=== PATIENT | male | born 1945 | race Caucasian/White ===

== ENCOUNTER → 2016-09-13 | Outpatient (CLI) | payer MEDICARE, OTHER ==
[~2016-09-13] MED LIST: KLOR-CON M1010 MEQ PO; LEADER OMEPRAZO20 MG PO; LIDOCAINE HC20 MG/M1 MM; NICOTINE21 MG/24 H TD; NO HOME MEDICATIONS; NORCO 325 MG-7.1 TA1 PO; PROAIR RESPICL90 MCG IH; SERTRALINE50 MG PO
== END ==
LOC: LAB 08:33
DX: C01 Malignant neoplasm of base of tongue (principal); F17.210 Nicotine dependence, cigarettes, uncomplicated; R68.89 Other general symptoms and signs

== ENCOUNTER 2017-03-07 11:26 | Emergency (ER) | payer MEDICARE, OTHER ==
[~2017-03-07] VITALS: Ht 188 cm; Wt 50.9 kg
[~2017-03-07 11:26] MED LIST changes: -KLOR-CON M1010 MEQ PO; -LEADER OMEPRAZO20 MG PO; -LIDOCAINE HC20 MG/M1 MM; -NICOTINE21 MG/24 H TD; -NORCO 325 MG-7.1 TA1 PO; -PROAIR RESPICL90 MCG IH; -SERTRALINE50 MG PO
[2017-03-07] MEDS ORDERED: SERTRALINE50 MG PO (11:54)
[2017-03-07] MEDS ORDERED: NORCO 325 MG-7.1 TA1 PO (11:55)
[2017-03-07] MEDS ORDERED: LIDOCAINE HC20 MG/M1 MM (12:00)
[2017-03-07] MEDS ORDERED: KLOR-CON M1010 MEQ PO (12:09)
[2017-03-07] MEDS ORDERED: NICOTINE21 MG/24 H TD (14:55)
[2017-03-07 16:39] VITALS: BP 122/87
== END 2017-03-07 16:39 | disposition left against medical advice (07) ==
LOC: ED 11:26
DX: E87.1 Hypo-osmolality and hyponatremia (principal); F10.10 Alcohol abuse, uncomplicated; R74.8 Abnormal levels of other serum enzymes; J44.9 Chronic obstructive pulmonary disease, unspecified; Z85.810 Personal history of malignant neoplasm of tongue; K21.9 Gastro-esophageal reflux disease without esophagitis; K29.70 Gastritis, unspecified, without bleeding; F17.210 Nicotine dependence, cigarettes, uncomplicated; R07.0 Pain in throat; R13.10 Dysphagia, unspecified; Z91.81 History of falling
CPT/HCPCS: J7030

== ENCOUNTER 2017-03-09 09:41 | Emergency (ER) | payer MEDICARE, OTHER ==
[~2017-03-09] VITALS: Ht 188 cm; Wt 55.5 kg
[~2017-03-09 09:41] MED LIST changes: +KLOR-CON M1010 MEQ PO; +LIDOCAINE HC20 MG/M1 MM; +NICOTINE21 MG/24 H TD; +NORCO 325 MG-7.1 TA1 PO; +SERTRALINE50 MG PO
[2017-03-09] MEDS ORDERED: PROAIR RESPICL90 MCG IH (09:55)
[2017-03-09] MEDS ORDERED: LEADER OMEPRAZO20 MG PO (09:55)
[2017-03-09 12:53] VITALS: BP 109/80
== END 2017-03-09 12:26 | disposition other institution (70) ==
LOC: ED 09:41
DX: E87.1 Hypo-osmolality and hyponatremia (principal); D69.6 Thrombocytopenia, unspecified; F10.10 Alcohol abuse, uncomplicated; E86.1 Hypovolemia; K74.60 Unspecified cirrhosis of liver; L89.151 Pressure ulcer of sacral region, stage 1; M25.561 Pain in right knee; R00.0 Tachycardia, unspecified; Z91.14 Patient's other noncompliance with medication regimen; C02.9 Malignant neoplasm of tongue, unspecified; J02.9 Acute pharyngitis, unspecified; Z92.3 Personal history of irradiation; R06.02 Shortness of breath; G89.29 Other chronic pain; R16.0 Hepatomegaly, not elsewhere classified
CPT/HCPCS: A6214; J7030

== ENCOUNTER 2017-03-09 12:26 | Inpatient (IN) | payer MEDICARE, OTHER ==
[2017-03-09] VITALS (16 sets, daily range): BP systolic 88–132; BP diastolic 42–80
[~2017-03-09] VITALS: Ht 188 cm; Wt 54.4 kg
[~2017-03-09 12:26] MED LIST changes: +LEADER OMEPRAZO20 MG PO; +PROAIR RESPICL90 MCG IH
--- NOTE | 2017-03-09 13:39 | NUR ---
Pt admitted to room 203. Oriented to room. Pt alert and oriented. Reports mild pain to throat and tongue "where my cancer was." Pt also reports tenderness to right thigh muscle following a fall a couple days ago. Multiple scattered bruises and skin tears noted. Pt with ulcers to coccyx 0.7x0.8 and to left buttock 0.5x0.5 and right buttock 0.5x0.5. Areas cleansed and dressed in ER. Pt tolerates well. Bed alarm on. Call light in reach
--- NOTE | 2017-03-09 14:30 | NUR ---
Pt has 2 episodes of waterlike loose vary dark BM. Pt partially incontinent. Eliza care provided and assisted back to bed with [address] Cook notified.
--- NOTE | 2017-03-09 15:27 | NUR ---
Pt hollers out. This nurse enters room and pt appears aggitated and restless. Pt states "Im nervous, I think I need that nicotine patch and something for withdrawl" This nurse helps pt reposition in bed and notifies Dr Cook of pt request. new orders obtained and medications admininistered
--- NOTE | 2017-03-09 16:00 | NUR ---
Pt continues to be restless agitated in bed. This nurse applies telemetry and notes pt to be in SVT with at rate of 200+. This nurse and Dr. Cook at bedside and EKG obtained. Yamila GARZA also arrives at bedside. NS opened wide. Unable to obtain blood pressure or SPO2.
--- NOTE | 2017-03-09 16:10 | NUR ---
Pt family and DPOA notified of pt condition
--- NOTE | 2017-03-09 16:18 | NUR ---
Pt receives 1 shock at 120 joules. Pt returns to an irregular rhythm in the 120s. Pt tolerates well.
--- NOTE | 2017-03-09 16:21 | NUR ---
EKG obtained and reads Sinus Tach with occasional PVC's.
--- NOTE | 2017-03-09 16:31 | NUR ---
Levophed drip started at 5mcg/min per Dr. Cook
--- NOTE | 2017-03-09 16:43 | NUR ---
Lab in to obtain ABGs at this time.
--- NOTE | 2017-03-09 16:56 | NUR ---
Pt restless and repositioned and coached to relax. New defib pads applied
--- NOTE | 2017-03-09 17:24 | NUR ---
Daughter at bedside. Pt alert to verbal stimuli. Pt disoriented and mumbling.
--- NOTE | 2017-03-09 17:31 | NUR ---
Levophed drip stopped at this time per order from Dr. Cook
--- NOTE | 2017-03-09 17:46 | NUR ---
This speaks with [facility] and they report it will be 1.5 hours before they are available for transfer
--- NOTE | 2017-03-09 18:30 | NUR ---
[facility] updated with pt ETA
--- NOTE | 2017-03-09 18:30 | NUR ---
Family at bedside pt is resting comfortably with tele rate in 110-120
--- NOTE | 2017-03-09 19:07 | NUR ---
REPORT RECEIVED FROM ARMAND Hidalgo RN.
--- NOTE | 2017-03-09 20:10 | NUR ---
REPORT CALLED TO LIZY GARZA AT [facility] ICU.
--- NOTE | 2017-03-09 20:35 | NUR ---
EMS ARRIVES TO TRANSPORT PATIENT TO [facility] ICU IN [place].
--- NOTE | 2017-03-09 20:48 | NUR ---
EMS LEAVES WITH PATIENT AT THIS TIME. MULTIPLE FAMILY MEMBERS IN ATTENDANCE ARE PROVIDED EDUCATION AND A MINOR UPDATE ON PATIENT'S CONDITION. PATIENT IS STABLE AT THIS TIME, HOWEVER HIS CARDIAC MONITORING IS BEGINNING TO SHOW CHANGES. PATIENT IS MORE AWAKE AND BECOMING RESTLESS. PATIENT IS SWITCHED OVER TO EMS O2, WHICH REMAINS AT 2L/MIN VIA NC. NS CONTINUES TO INFUSE AT 100 ML/HR INTO A 20G IV LOCATED IN LAC. A 2ND IV, LOCATED IN THE RFA, IS SALINE LOCKED. TELEMETRY IS SWITCHED OVER TO EMS EQUIPTMENT. WARM BLANKETS ARE PROVIDED REQUESTED BY PATIENT'S FAMILY. PATIENT REMAINS GROGGY AND DISORIENTED.
== END 2017-03-09 20:48 | disposition short-term general hospital (02) | DRG 641 ==
LOC: MED/SURG 12:26
PROVIDERS: ADMIT Family Medicine
DX: E87.1 Hypo-osmolality and hyponatremia (principal); E46 Unspecified protein-calorie malnutrition; I47.1 Supraventricular tachycardia; Z68.1 Body mass index [BMI] 19.9 or less, adult; L89.151 Pressure ulcer of sacral region, stage 1; D69.6 Thrombocytopenia, unspecified; E86.0 Dehydration; F17.210 Nicotine dependence, cigarettes, uncomplicated; Z91.19 Patient's noncompliance with other medical treatment and regimen; Z85.810 Personal history of malignant neoplasm of tongue
CPT/HCPCS: J0153; J0744; J2060; J7030

== ENCOUNTER → 2017-03-19 | Outpatient (REF) ==
[2017-03-09 20:10] VITALS: BP 90/59
== END ==
LOC: LAB 05:22
DX: E43 Unspecified severe protein-calorie malnutrition (principal)

== ENCOUNTER → 2017-04-03 | Outpatient (REF) ==
[2017-03-09 20:10] VITALS: BP 90/59
== END ==
LOC: LAB 05:05
DX: J44.9 Chronic obstructive pulmonary disease, unspecified (principal); E43 Unspecified severe protein-calorie malnutrition; E87.1 Hypo-osmolality and hyponatremia

== ENCOUNTER → 2017-04-15 | Outpatient (CLI) | payer MEDICARE, OTHER ==
[2017-03-09 20:10] VITALS: BP 90/59
[~2017-04-15] MED LIST changes: +BACTRIM DS TAB1 EACH PO; +BIOTENE DRY M1000 ML PO; +CEPHALEXIN500 M1 PO; +CHILDREN'S ASPI81 M1 PO; +CLOPIDOGREL PO; +CYCLOBENZAPRINE10 M1 PO; +DIGOX0.25 MG PO; +DULCOLAX10 M1 RC; +FLEET ENEM1 BOT/133 RC; +ICY HOT CREAM35.4 GM; +MULTIPLE VITAMI1 TA1 PO; +NATURE'S BLEND100 M2 PO; +NEURONTIN100 M1 PO; +NICOTINE14 MG/24 H TOP; +PERCOCET 325 MG1 TA2 PO; +POTASSIUM CHLO10 ME7 PO; +PRILOSEC 20MG20 MG PO; +RT ALBUTEROL CC18 GM IH; +VALIUM 5MG T5 MG/TAB PO; +ZOLOFT 50MG50 MG PO; +[UNRECOGNIZED DRUG - CODE] TOP
== END ==
LOC: RAD 09:27
DX: C10.9 Malignant neoplasm of oropharynx, unspecified (principal); K76.89 Other specified diseases of liver
CPT/HCPCS: Q9967

== ENCOUNTER → 2017-04-22 | Outpatient (CLI) | payer MEDICARE, OTHER ==
[2017-03-09 20:10] VITALS: BP 90/59
[~2017-04-22] MED LIST changes: -BACTRIM DS TAB1 EACH PO; -BIOTENE DRY M1000 ML PO; -CEPHALEXIN500 M1 PO; -CHILDREN'S ASPI81 M1 PO; -CLOPIDOGREL PO; -CYCLOBENZAPRINE10 M1 PO; -DIGOX0.25 MG PO; -DULCOLAX10 M1 RC; -FLEET ENEM1 BOT/133 RC; -ICY HOT CREAM35.4 GM; -MULTIPLE VITAMI1 TA1 PO; -NATURE'S BLEND100 M2 PO; -NEURONTIN100 M1 PO; -NICOTINE14 MG/24 H TOP; -PERCOCET 325 MG1 TA2 PO; -POTASSIUM CHLO10 ME7 PO; -PRILOSEC 20MG20 MG PO; -RT ALBUTEROL CC18 GM IH; -VALIUM 5MG T5 MG/TAB PO; -ZOLOFT 50MG50 MG PO; -[UNRECOGNIZED DRUG - CODE] TOP
== END ==
LOC: LAB 15:14
DX: R06.02 Shortness of breath (principal)

== ENCOUNTER → 2017-04-25 | Outpatient (CLI) | payer MEDICARE, OTHER ==
[2017-04-24 21:17] VITALS: BP 121/66
[~2017-04-25] MED LIST changes: +BACTRIM DS TAB1 EACH PO; +BIOTENE DRY M1000 ML PO; +CEPHALEXIN500 M1 PO; +CHILDREN'S ASPI81 M1 PO; +CLOPIDOGREL PO; +CYCLOBENZAPRINE10 M1 PO; +DIGOX0.25 MG PO; +DULCOLAX10 M1 RC; +FLEET ENEM1 BOT/133 RC; +ICY HOT CREAM35.4 GM; +MULTIPLE VITAMI1 TA1 PO; +NATURE'S BLEND100 M2 PO; +NEURONTIN100 M1 PO; +NICOTINE14 MG/24 H TOP; +PERCOCET 325 MG1 TA2 PO; +POTASSIUM CHLO10 ME7 PO; +PRILOSEC 20MG20 MG PO; +RT ALBUTEROL CC18 GM IH; +VALIUM 5MG T5 MG/TAB PO; +ZOLOFT 50MG50 MG PO; +[UNRECOGNIZED DRUG - CODE] TOP
== END ==
LOC: LAB 15:08
DX: L97.519 Non-pressure chronic ulcer of other part of right foot with unspecified severity (principal); E87.1 Hypo-osmolality and hyponatremia

== ENCOUNTER 2017-11-12 11:18 | Emergency (ER) | payer MEDICARE, OTHER ==
[~2017-11-12] VITALS: Ht 188 cm; Wt 54.2 kg
[2017-11-12 12:35] LABS: ALBUMIN 2.7 g/dL (3.5-5.0); ALT/SGPT 24 U/L (21-72); CALCIUM 7.6 mg/dL (8.4-10.2); GLUCOSE 97 mg/dL (75-110); LIPASE 41 U/L (23-300); POTASSIUM 3.4 mmol/L (3.6-5.0); SODIUM 124 mmol/L (137-145); TOTAL BILIRUBIN 1.7 mg/dL (0.2-1.3); TOTAL PROTEIN 5.3 g/dL (6.3-8.2)
[2017-11-12 12:38] LABS: CARBON DIOXIDE 16 mmol/L (22-30)
[2017-11-12 12:50] LABS: HEMATOCRIT 26.7 % (42.0-52.0); HEMOGLOBIN 9.1 g/dL (13.5-18.0); MEAN CELL VOLUME 100 fl (78-100); MEAN CORPUSCULAR HEMOGLOBIN 34 pg (27-31); MEAN CORPUSCULAR HGB CONC 34 g/dL (33-37); MEAN PLATELET VOLUME 9.1 fl (7.4-10.4); PLATELET COUNT 187 K/mm3 (130-400); RED BLOOD COUNT 2.66 M/mm3 (4.20-5.60); RED CELL DISTRIBUTION WIDTH 15.9 % (11.5-14.5)
[2017-11-12 13:14] LABS: LYMPHOCYTE 3 % (20-51); MONOCYTE 5 % (3-10); NEUTROPHILS 92 % (42-75)
[2017-11-12 15:53] LABS: URINE APPEARANCE CLEAR; URINE BILIRUBIN NEGATIVE (NEGATIVE); URINE COLOR YELLOW; URINE GLUCOSE NEGATIVE (NEGATIVE); URINE KETONE NEGATIVE (NEGATIVE); URINE NITRATE NEGATIVE (NEGATIVE); URINE PROTEIN(semi-quant) TRACE mg/dL (NEGATIVE); URINE UROBILINOGEN NORMAL (NORMAL)
[2017-11-12 15:54] LABS: URINE BLOOD TRACE (NEGATIVE); URINE LEUKOCYTE ESTERASE TRACE (NEGATIVE)
[2017-11-12] MEDS ORDERED: GABAPENTIN100 MG PO (16:34)
[2017-11-12 18:18] LABS: MEAN CELL VOLUME 100 fl (78-100); MEAN CORPUSCULAR HEMOGLOBIN 34 pg (27-31); MEAN CORPUSCULAR HGB CONC 34 g/dL (33-37); MEAN PLATELET VOLUME 9.4 fl (7.4-10.4); PLATELET COUNT 163 K/mm3 (130-400); RED BLOOD COUNT 2.35 M/mm3 (4.20-5.60); WHITE BLOOD COUNT 7.8 K/mm3 (4.8-10.8)
[2017-11-12 18:37] LABS: HEMATOCRIT 23.4 % (42.0-52.0)
[2017-11-12 18:44] LABS: LYMPHOCYTE 4 % (20-51); MONOCYTE 6 % (3-10); NEUTROPHILS 90 % (42-75)
[2017-11-12 19:01] VITALS: BP 125/75
== END 2017-11-12 16:31 | disposition other institution (70) ==
LOC: ED 11:18
PROVIDERS: Nurse Practitioner Family; Physician Assistant
DX: A41.9 Sepsis, unspecified organism (principal); N39.0 Urinary tract infection, site not specified; E87.1 Hypo-osmolality and hyponatremia; F10.230 Alcohol dependence with withdrawal, uncomplicated; Y90.0 Blood alcohol level of less than 20 mg/100 ml; J44.9 Chronic obstructive pulmonary disease, unspecified; Z85.810 Personal history of malignant neoplasm of tongue; F17.210 Nicotine dependence, cigarettes, uncomplicated; Z79.82 Long term (current) use of aspirin; Z79.02 Long term (current) use of antithrombotics/antiplatelets; G62.9 Polyneuropathy, unspecified; L89.319 Pressure ulcer of right buttock, unspecified stage
CPT/HCPCS: J2060; J7030; J7120

== ENCOUNTER 2017-11-12 16:27 | Inpatient (IN) | payer MEDICARE, OTHER ==
[2017-11-12] MEDS ORDERED: GABAPENTIN100 MG PO (16:34)
[2017-11-12 18:20] VITALS: BP 128/67
== END 2017-11-12 18:20 | disposition short-term general hospital (02) | DRG 872 ==
LOC: MED/SURG 16:27
PROVIDERS: ADMIT Physician Assistant
DX: A41.9 Sepsis, unspecified organism (principal); E87.1 Hypo-osmolality and hyponatremia; N39.0 Urinary tract infection, site not specified; F10.239 Alcohol dependence with withdrawal, unspecified; K92.1 Melena; F17.210 Nicotine dependence, cigarettes, uncomplicated; Z85.810 Personal history of malignant neoplasm of tongue; J44.9 Chronic obstructive pulmonary disease, unspecified
CPT/HCPCS: C9113; J3411; J3490; J7030

== ENCOUNTER 2018-06-20 18:08 | Emergency (ER) | payer MEDICARE, OTHER ==
[~2018-06-20 18:08] MED LIST changes: +GABAPENTIN100 MG PO
[2018-06-20] MEDS ORDERED: LANOXIN125 MCG PO (19:26)
[2018-06-20] MEDS ORDERED: CARAFATE 1GM1 G PO (19:27)
[2018-06-20] MEDS ORDERED: OMEPRAZOLE40 MG PO (19:27)
[2018-06-20 19:46] LABS: HEMATOCRIT 42.1 % (42.0-52.0); HEMOGLOBIN 16.2 g/dL (13.5-18.0); MEAN CELL VOLUME 99 fl (78-100); MEAN CORPUSCULAR HGB CONC 39 g/dL (33-37); MEAN PLATELET VOLUME 10.4 fl (7.4-10.4); PLATELET COUNT 162 K/mm3 (130-400); RED BLOOD COUNT 4.25 M/mm3 (4.20-5.60); RED CELL DISTRIBUTION WIDTH 15.3 % (11.5-14.5)
[2018-06-20 20:01] LABS: ALBUMIN 3.4 g/dL (3.5-5.0); CALCIUM 8.4 mg/dL (8.4-10.2); TOTAL BILIRUBIN 2.3 mg/dL (0.2-1.3); TOTAL PROTEIN 6.6 g/dL (6.3-8.2)
[2018-06-20 20:08] LABS: PH-URINE 6.5 (5.0 - 8.0); URINE APPEARANCE CLEAR; URINE BILIRUBIN NEGATIVE (NEGATIVE); URINE BLOOD 50 ery/uL (NEGATIVE); URINE COLOR YELLOW; URINE GLUCOSE NEGATIVE (NEGATIVE); URINE KETONE NEGATIVE (NEGATIVE); URINE LEUKOCYTE ESTERASE NEGATIVE (NEGATIVE); URINE NITRATE NEGATIVE (NEGATIVE); URINE PROTEIN(semi-quant) 1+ mg/dL (NEGATIVE); URINE UROBILINOGEN NORMAL (NORMAL); URINE WBC 0-1 /hpf (0-3)
[2018-06-20 20:10] LABS: URINE MUCUS PRESENT (NOT PRESENT)
[2018-06-20 20:19] LABS: MEAN CORPUSCULAR HEMOGLOBIN 38 pg (27-31)
[2018-06-20 20:20] LABS: LYMPHOCYTE 3 % (20-51); MONOCYTE 9 % (3-10); NEUTROPHILS 88 % (42-75)
[2018-06-20 23:30] VITALS: BP 135/89
== END 2018-06-20 23:02 | disposition other institution (70) ==
LOC: ED 18:08
PROVIDERS: Family Medicine
DX: L89.150 Pressure ulcer of sacral region, unstageable (principal); L89.890 Pressure ulcer of other site, unstageable; L08.9 Local infection of the skin and subcutaneous tissue, unspecified; E86.9 Volume depletion, unspecified; E87.1 Hypo-osmolality and hyponatremia; E87.3 Alkalosis; R46.0 Very low level of personal hygiene; M25.551 Pain in right hip; I48.91 Unspecified atrial fibrillation; J44.9 Chronic obstructive pulmonary disease, unspecified; Z85.810 Personal history of malignant neoplasm of tongue; F10.21 Alcohol dependence, in remission; Z87.891 Personal history of nicotine dependence; Z91.14 Patient's other noncompliance with medication regimen
CPT/HCPCS: J2543; J7030; J7120

== ENCOUNTER 2018-07-01 10:45 | Inpatient (IN) | payer MEDICARE, OTHER ==
[~2018-07-01] VITALS: Ht 193 cm; Wt 55.7 kg
[~2018-07-01 10:45] MED LIST changes: +CARAFATE 1GM1 G PO; +LANOXIN125 MCG PO; +OMEPRAZOLE40 MG PO
[2018-07-01 11:00] VITALS: BP 103/62
[2018-07-01 11:23] VITALS: BP 103/62
[2018-07-01 18:37] VITALS: BP 126/87
[2018-07-02 06:27] VITALS: BP 111/74
[2018-07-02 07:54] LABS: ALBUMIN 2.6 g/dL (3.5-5.0); CALCIUM 9.1 mg/dL (8.4-10.2); POTASSIUM 3.8 mmol/L (3.6-5.0); TOTAL BILIRUBIN 0.5 mg/dL (0.2-1.3); TOTAL PROTEIN 5.5 g/dL (6.3-8.2)
[2018-07-02 07:57] LABS: HEMATOCRIT 32.6 % (42.0-52.0); HEMOGLOBIN 10.8 g/dL (13.5-18.0); MEAN CORPUSCULAR HGB CONC 33 g/dL (33-37); MEAN PLATELET VOLUME 9.9 fl (7.4-10.4); PLATELET COUNT 313 K/mm3 (130-400); RED BLOOD COUNT 2.83 M/mm3 (4.20-5.60); RED CELL DISTRIBUTION WIDTH 17.7 % (11.5-14.5); WHITE BLOOD COUNT 10.5 K/mm3 (4.8-10.8)
[2018-07-02 08:03] LABS: MEAN CELL VOLUME 115 fl (78-100); MEAN CORPUSCULAR HEMOGLOBIN 38 pg (27-31)
[2018-07-02 08:27] LABS: LYMPHOCYTE 8 % (20-51); MONOCYTE 4 % (3-10); NEUTROPHILS 88 % (42-75); TARGET CELLS 2+
[2018-07-02 18:53] VITALS: BP 118/73
[2018-07-03] VITALS (8 sets, daily range): BP systolic 70–169; BP diastolic 22–90
[2018-07-03 06:29] LABS: ALBUMIN 2.3 g/dL (3.5-5.0); CALCIUM 8.4 mg/dL (8.4-10.2); POTASSIUM 4.1 mmol/L (3.6-5.0); TOTAL BILIRUBIN 0.4 mg/dL (0.2-1.3)
[2018-07-03 06:38] LABS: HEMATOCRIT 29.4 % (42.0-52.0); HEMOGLOBIN 9.4 g/dL (13.5-18.0); MEAN CORPUSCULAR HGB CONC 32 g/dL (33-37); MEAN PLATELET VOLUME 10.3 fl (7.4-10.4); PLATELET COUNT 278 K/mm3 (130-400); RED BLOOD COUNT 2.54 M/mm3 (4.20-5.60); RED CELL DISTRIBUTION WIDTH 17.9 % (11.5-14.5)
[2018-07-03 07:01] LABS: MEAN CELL VOLUME 116 fl (78-100); MEAN CORPUSCULAR HEMOGLOBIN 37 pg (27-31)
[2018-07-03 07:28] LABS: BAND 7 % (0-10); D-DIMER 1.28 mg/L FEU (0.15-0.50); LYMPHOCYTE 8 % (20-51); MONOCYTE 6 % (3-10); NEUTROPHILS 79 % (42-75)
== END 2018-07-04 17:21 | disposition expired | DRG 947 ==
LOC: MED/SURG 10:45
PROVIDERS: Nurse Practitioner; ADMIT Nurse Practitioner Primary Care
PROC: 5A1935Z Respiratory Ventilation, Less than 24 Consecutive Hours (ICD-10-PCS; principal; 2018-07-03)
DX: R53.81 Other malaise (principal); E43 Unspecified severe protein-calorie malnutrition; J18.9 Pneumonia, unspecified organism; J96.01 Acute respiratory failure with hypoxia; Z68.1 Body mass index [BMI] 19.9 or less, adult; J90 Pleural effusion, not elsewhere classified; Z51.5 Encounter for palliative care; Z66 Do not resuscitate; R62.7 Adult failure to thrive; I10 Essential (primary) hypertension; E86.0 Dehydration; S72.001D Fracture of unspecified part of neck of right femur, subsequent encounter for closed fracture with routine healing; Z85.810 Personal history of malignant neoplasm of tongue; R13.10 Dysphagia, unspecified; F10.20 Alcohol dependence, uncomplicated; J44.9 Chronic obstructive pulmonary disease, unspecified; I48.91 Unspecified atrial fibrillation; F17.210 Nicotine dependence, cigarettes, uncomplicated; L89.320 Pressure ulcer of left buttock, unstageable; L89.310 Pressure ulcer of right buttock, unstageable; L89.220 Pressure ulcer of left hip, unstageable; L89.210 Pressure ulcer of right hip, unstageable
CPT/HCPCS: C9113; J0610; J1650; J2060; J2250; J2270; J3010; J3411; J3475; J3480; J3490; J7030; Q9967